=== PATIENT | male | born 1990 | race Caucasian/White ===

== ENCOUNTER 2023-08-04 06:22 | Inpatient (IN) | payer OTHER, SELFPAY ==
[2023-08-04 01:40] VITALS: BP 122/65; BMI 26.7
--- NOTE | 2023-08-04 02:01 | ED.GENMED ---
History of Present Illness
General
Chief Complaint: Cancer Problem
Source: family
Time Seen by Provider: 08/04/23 01:42
Travel History
Have you had any contact with someone who has COVID-19?: No
Do you have any symptoms of coronavirus? Fever > 100 degrees, chills, cough, shortness of breath, sore throat, loss of taste or smell, muscle aches, or headache?: No
History of Present Illness
History of Present Illness:
33-year-old male presents to the emergency room for aphasia, confusion. Patient is an unfortunate young man who has a history of metastatic melanoma. He is going through extensive treatments including chemo, immunotherapy, surgical resections,
radiation. He has been through clinical trials. Despite this he continues to have advanced disease with recent onset of right lower extremity paralysis followed by right upper extremity paralysis. However despite this paralysis he was cognizant
and conversant. This evening however he became aphasic and more confused. Patient has chronic pain but has been refusing his pain medicine tonight which parents recognize is very unusual. He is unable to identify his father and mother correctly.
Up until recently the patient was able to describe his full medical history, list of meds etc. Patient is unable to provide any history due to confusion/aphasia
Past History
Past History
ED Past Medical History: Cancer (Stage 4 melanoma) and Other (Kidney stones)
ED Past Surgical History: Orthopedic (right shoulder, low back) and Other (stent, renal calc retrieval, inguinal hernia repair,. Right eyebrow (original melanoma site), wisdom teeth)
Social History
Tobacco: Non-smoker
Alcohol: Occasional
Drug: Marijuana and Other (Occasional recreational use)
Personal: Single
Living: with family
Employment: Employed
Family History
Family History: Negative Early CAD or Sudden
Phy Exam
Physical Exam
Physical Exam:
General: Awake, confused, appears chronically ill
Vitals: unremarkable
Head: Atraumatic
Eyes: Pupils equal, EOMI
Throat: Airway intact, no exudates
Neck: Trachea midline
Lungs: Clear and equal b/l
Heart: Regular rate, no murmurs
Abd: Soft, Nontender, No pulsatile mass
Neuro: Right hemiplegia, expressive aphasia. Patient is able to follow commands
Skin: Warm, dry, no rash
Extremities: pulses equal b/l, no edema
Course
Orders/Labs/Results
Orders:
Orders
08/04/23 02:00
CT Head W/o Iv Contrast Urgent
Comment:
Reason For Exam: aphasia, hx of metastaic melenoma
HYDROmorphone [Dilaudid] 1 mg IV NOW STA
08/04/23 02:01
Basic Metabolic Panel Urgent
Complete Blood Count/With Diff Urgent
08/04/23 02:34
Ondansetron Injectable [Zofran] 4 mg .ROUTE .STK-MED ONE
08/04/23 02:48
Ondansetron Injectable [Zofran] 4 mg IV NOW STA
08/04/23 04:37
HYDROmorphone [Dilaudid] 1 mg .ROUTE .STK-MED ONE
08/04/23 04:38
HYDROmorphone [Dilaudid] 1 mg IV NOW STA
08/04/23 04:48
Dexamethasone Sod Phosphate [Decadron] 8 mg IV NOW STA
Abnormal Lab Results
08/04/23
02:01
RBC 2.54 L 10^6/uL
(4.70-6.10)
Hgb 6.2 L* g/dL
(13.0-18.0)
Hct 19.8 L* %
(39.0-52.0)
MCV 78.0 L fL
(80.0-94.0)
MCH 24.4 L pg
(27.0-31.0)
MCHC 31.3 L g/dL
(33.0-37.0)
RDW 16.4 H %
(11.5-14.5)
Abs Immat Gran (auto) 0.1 H 10^3/uL
(0-0.05)
Absolute Lymphs (auto) 0.5 L 10^3/uL
(1.2-3.4)
Immature Gran % 1.5 H %
(0-0.5)
Neutrophils % 83.4 H %
(42.2-75.2)
Lymphocytes % 8.9 L %
(20.5-51.1)
Creatinine 0.6 L mg/dL
(0.7-1.3)
Glucose 104 H mg/dl
(70-99)
08/04/23 02:01
08/04/23 02:01
Vital Signs
Initial and Last Documented VS:
Initial Vital Signs
Temp Pulse Resp BP Pulse Ox
97.7 F 91 18 122/65 97
08/04/23 01:40 08/04/23 01:40 08/04/23 01:40 08/04/23 01:40 08/04/23 01:40
Last Documented Vital Signs
Temp Pulse Resp BP Pulse Ox
97.7 F 91 18 122/65 97
08/04/23 01:40 08/04/23 01:40 08/04/23 01:40 08/04/23 01:40 08/04/23 01:40
MDM/Problems Addressed
Differential Diagnosis Includes:
Bleed into cerebral metastases, increased edema from cerebral metastases, new metastatic disease, CVA
MDM/Problems Addressed:
Renal function
Man with metastatic melanoma. He is known brain lesions which have been causing right-sided weakness. Patient has had most of his treatment at our [facility] where he has essentially exhausted all therapies. He was evaluated at the
[facility] to see if there would be any surgical options for his brain mets but the surgeons there felt he was not a candidate for intervention. There was some consideration of radiation. In addition to the significant metastatic
lesions the patient also has intra-abdominal and bony mets. CT performed here does not show any intra cranial hemorrhage but does show marked edema bilaterally but left greater than right. I discussed these findings with the patient and his
family. Given the widely metastatic disease and the fact he is already gone through many courses of treatment the patient has reached and end stage of his disease. I recommended that we change the goals of treatment to comfort care/hospice.
Family tells me this topic has been broached by the physicians at [place] but they had not quite decided to go that route. They now agree that this is the best option. Will hospitalize the patient for comfort measures pending arrangement of hospice.
Acute Exacerbation and/or Progression of Chronic Illness: Cancer (Metastatic melanoma)
*Radiology
Radiology exam reviewed: other (Vision report reviewed)
*Pulse Oximetry
Patient hypoxic: no
*Critical Care Note
Total Time (30-74mins, 75-104mins- exclusive of procedures): Not Applicable
Patient Management
Social determinants of health affecting care: Living situation and Other (Patient has strong family support but they are overwhelmed by the current requirements of the patient)
ED Attending Note
-
Portions of this chart may have been created with voice recognition software.� Occasional wrong word or��sound alike� substitutions may have occurred due to the inherent limitations of voice recognition software.
Discharge Plan
Departure
Patient Disposition: Admit
Date of Disposition: 08/04/23
Time of Disposition: 04:48
Admit to: Med/Surg
Presentation/result/management discussed w/ accepting MD/DO: Hospitalist
Condition: Fair
Discharge Problem:
Brain mass, Melanoma, Aphasia
Prescriptions:
No Action
levetiracetam [Keppra] 1,000 mg Tablet
1,000 mg PO BID
Braftovi 75 mg Capsule
450 mg PO DAILY
Mektovi 15 mg Tablet
45 mg PO BID
promethazine 25 mg Tablet
25 mg PO Q6H PRN (Reason: nausea)
morphine
1 dose PO PRN PRN (Reason: cancer pain)
Patient Comments:
01/25/2023: Pt states he takes it, but cant find on Dr First or PDMP
cefdinir 300 mg capsule
300 mg PO BID 6 Days Qty: 12 0RF
hydromorphone [Dilaudid] 4 mg Tablet
4 mg PO Q4H PRN (Reason: cancer pain) Qty: 30 0RF
Patient Comments:
01/25/2023: last filled 01/22/23, 16 tabs for 4 days from [facility]
ferrous sulfate 325 mg (65 mg iron) tablet
325 mg PO DAILY Qty: 30 0RF
sennosides [senna] 8.6 mg Tablet
17.2 mg PO HS
polyethylene glycol 3350 17 gram Powder In Packet
17 g PO DAILY
acetaminophen 500 mg Tablet
1,000 mg PO Q8H PRN (Reason: mild pain/fever )
ondansetron 8 mg Tablet,Disintegrating
8 mg PO Q8H PRN (Reason: nausea )
pantoprazole 40 mg Tablet,Delayed Release (Dr/Ec)
40 mg PO DAILY
dexamethasone 4 mg Tablet
4 mg PO DAILY
pyridoxine (vitamin B6) 100 mg Tablet
100 mg PO DAILY
fentanyl 25 mcg/hr Patch 72 Hour
1 patch TRANSDERMAL Q72H
oxycodone 5 mg Tablet
10 mg PO Q4H PRN (Reason: moderate to severe pain)
pregabalin 75 mg Capsule
75 mg PO DAILY
binimetinib 15 mg Tablet
45 mg PO Q12H
Oral Chemo Non-Formulary
450 mg PO DAILY
Referrals:
UNKNOWN - PT NOT,INTERVIEWE [Family Provider] -
Interventions
Interventions:
*Risk Screen - Suicide Last Done: 08/04/23 01:40
*General Assessment Last Done: 08/04/23 01:40
*Neglect/Abuse Screening Last Done: 08/04/23 01:40
ED- Fall Risk Assessment Last Done: 08/04/23 02:56
*ED COVID-19 Vaccine History Last Done: 08/04/23 01:40
Discharge Date and Time
Print Language: JAMAICAN
[2023-08-04] MEDS: DILAUDID 1 MG IV ×3 (02:03→05:19)
[2023-08-04 02:10] LABS: % Basophils 0.3 % (0-2); % Eosinophils 0.3 % (0-6); % Immature Granulocytes 1.5 % (0-0.5); % Lymphocytes 8.9 % (20.5-51.1); % Monocytes 5.6 % (1.7-9.3); % Neutrophils 83.4 % (42.2-75.2); Absolute Immature Granulocytes 0.1 10^3/uL (0-0.05); Absolute Lymphocytes 0.5 10^3/uL (1.2-3.4); Absolute Monocytes 0.3 10^3/uL (0.1-0.6); Mean Corp Hgb Conc. 31.3 g/dL (33.0-37.0); Mean Corpuscular Hgb 24.4 pg (27.0-31.0); Mean Platelet Volume 10.1 fL (7.4-10.4); Nucleated Red Blood Cells % 0 % (-); Platelet Count 279 10^3/uL (130-400); Red Blood Cell Count 2.54 10^6/uL (4.70-6.10); Red Cell Dist. Width 16.4 % (11.5-14.5); White Blood Cell Count 5.9 10^3/uL (4.8-10.8)
[2023-08-04 02:19] LABS: Hematocrit 19.8 % (39.0-52.0); Hemoglobin 6.2 g/dL (13.0-18.0)
[2023-08-04 02:30] LABS: Blood Urea Nitrogen 12 mg/dl (9-20); Carbon Dioxide 24 mmol/L (22-30); Chloride 104 mmol/L (98-107); Estimated Creatinine Clearance > 125 ml/min; Glucose 104 mg/dl (70-99); Potassium 4.2 mmol/L (3.5-5.1); Sodium 136 mmol/L (135-145); eGFR > 60.00
[2023-08-04] MEDS: ZOFRAN 4 MG IV (02:48)
[2023-08-04] MEDS: DECADRON 8 MG IV (05:18)
--- NOTE | 2023-08-04 05:39 | HPS.HSE ---
Family Physician
-
Family Physician: INTERVIEWE UNKNOWN - PT NOT
Chief Complaint
-
Confusion, Agitation
History of Present Illness
Patient is a 33y M with PMH significant for stage IV myeloma who presents to ED for evaluation of confusion and agitation. History obtained from the patient and his family at the bedside.
Patient was diagnosed with melanoma 5 years ago. He has received multiple surgeries including two craniotomies, small bowel resection, etc as well as multiple treatments with immunotherapy, chemotherapy, radiation, etc. He was most recently
enrolled in a clinical trial at [facility]. This was discontinued approximately one month ago when the trial drug was found to be ineffective.
He has pain chronically due to bony metastases and is maintained on chronic opioid medications including Fentanyl patch and oxycodone.
Patient developed weakness in the RLE and was seen at [facility] last month. Imaging at that time has been scanned into his chart and shows evidence of multiple STEAM CONDITIONING OPERATOR metastases with areas of cerebral edema.
Since that time, patient has also developed weakness in the R arm / complete R hemiparesis.
He has become more emotionally labile / agitated and angry according to family.
This evening around midnight, patient was noted to be extremely confused and disoriented. He was unable to answer simple questions or identify his father.
EMS was called and he was brought to ED for further evaluation.
In the ED, patient is intermittently tearful / distressed. He is anxious / agitated at times.
The option of Hospice care has been discussed with the patient and his family over the past month or so and they are now interested in this approach to ensure the patient's maximum comfort.
Medical History
Past Medical History
Past Medical History: Reports Other
Additional Past Medical History:
Stage IV Melanoma with Metastases to the Brain and Bones
Past Surgical History: Reports Other
Additional Past Surgical History:
Melanoma Excisions (multiple)
Craniotomy / STEAM CONDITIONING OPERATOR Metastasis Excision (x 2)
Partial Small Bowel / Tumor Resection
Social History
Tobacco: Non-smoker
Alcohol: Occasional
Drug: None
Living: With Family
Family History
Family History: Not pertinent
Allergies / Home Medications
Allergies reflects when Allergies were last updated in [facility].
Home Medications with original date entered in [facility]
Allergy/Medication List:
Allergies
Allergy/AdvReac Type Severity Reaction Status Date / Time
No Known Allergies Allergy Verified 12/16/22 23:43
Home Medications
binimetinib 15 mg tablet (Mektovi) 45 mg PO BID melanoma 12/16/22
encorafenib 75 mg capsule (Braftovi) 450 mg PO DAILY melanoma 12/16/22
levetiracetam 1,000 mg tablet (Keppra) 1,000 mg PO BID Seizures 12/16/22
promethazine 25 mg tablet 25 mg PO Q6H PRN nausea 12/16/22
morphine 1 dose PO PRN PRN cancer pain 01/25/23
cefdinir 300 mg capsule 300 mg PO BID 6 days #12 caps 01/26/23
ferrous sulfate 325 mg (65 mg iron) tablet 325 mg PO DAILY #30 tabs 01/26/23
hydromorphone 4 mg tablet (Dilaudid) 4 mg PO Q4H PRN cancer pain #30 tabs 01/26/23
Oral Chemo Non-Formulary 450 mg PO DAILY 08/04/23
acetaminophen 500 mg tablet 1,000 mg PO Q8H PRN mild pain/fever 08/04/23
binimetinib 15 mg tablet 45 mg PO Q12H 08/04/23
dexamethasone 4 mg tablet 4 mg PO DAILY 08/04/23
fentanyl 25 mcg/hr transdermal patch 1 patch transdermal Q72H 08/04/23
ondansetron 8 mg disintegrating tablet 8 mg PO Q8H PRN nausea 08/04/23
oxycodone 5 mg tablet 10 mg PO Q4H PRN moderate to severe pain 08/04/23
pantoprazole 40 mg tablet,delayed release 40 mg PO DAILY 08/04/23
polyethylene glycol 3350 17 gram oral powder packet 17 g PO DAILY 08/04/23
pregabalin 75 mg capsule 75 mg PO DAILY 08/04/23
pyridoxine (vitamin B6) 100 mg tablet 100 mg PO DAILY 08/04/23
sennosides 8.6 mg tablet (senna) 17.2 mg PO HS 08/04/23
Review of Systems
-
History Source: Patient and Family
Constitutional: Reports Fatigue
Respiratory: Denies Cough or Trouble Breathing
Cardiac: Reports Chest Pain
Abdomen/GI: Reports Abdominal Pain, Nausea, Vomiting and Anorexia
Musculoskeletal: Reports Joint Pain and Muscle Pain
Psych: Reports Depression, Anxiety and Other (Confusion / agitation)
Physical Exam
Vital Signs
Vital Signs
Temp Pulse Resp BP Pulse Ox
97.7 F 91 18 122/65 97
08/04/23 01:40 08/04/23 01:40 08/04/23 01:40 08/04/23 01:40 08/04/23 01:40
Physical Exam
General: Other (33y M pale in no distress at rest. Intermittently anxious / agitated during exam.)
Respiratory: Clear; No Wheezes, Rales or Rhonchi
Cardiac: S1/S2 and Regular Rhythm; No Murmur
GI: Soft and Normal Bowel Sounds
Neuro: Other (Dense R hemiparesis.)
Laboratory Results
-
08/04/23 02:01
08/04/23 02:01
Impression/Plan
-
A/P: Patient is a 33y M with PMH significant for stage IV melanoma who presents to ED with confusion and agitation.
Stage IV Melanoma
Chronic Pain secondary to bony metastases
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
Severe Anemia
- Admit for further evaluation and treatment.
- Patient and family have exhausted all treatment options for his melanoma including clinical trials and are interested in hospice care - potentially in an inpatient setting given his hemiparesis / debility.
- IV steroid given in the ED - follow for any evident effect on vasogenic edema / mood symptoms / etc.
- Comfort care medications to control pain, anxiety, agitation, etc.
- Case Management / Hospice evaluation to assist with arrangements.
- No invasive procedures, lab draws, needlesticks, etc.
- Hold all non-essential medications.
- Continue medications for seizure prophylaxis.
- Monitor for any obvious source of blood loss. Hold on transfusion, etc given plan for Hospice care.
DVT Prophylaxis: N/A
Code Status: DNR
[2023-08-04] MEDS: NSS (PRESERVATIVE FREE) 0.5 ML IV (05:40)
[2023-08-04] MEDS: ATIVAN 1 MG IV (05:40)
[2023-08-04 07:20] VITALS: BP 101/57
--- NOTE | 2023-08-04 07:45 | PTCARENOTE ---
Received this pt from the ED, transferred to bed, pt medicated and repositioned with comfort measures, bed alarm and medsitter placed for agitation and fall risk, pt resting comfortably in bed at this time. Family updated and on their way into [facility].
[2023-08-04] MEDS: MORPHINE SULFATE 2 MG IV ×4 (08:24→12:39)
[2023-08-04] MEDS: KEPPRA 1000 MG PO (08:26)
[2023-08-04] MEDS: LYRICA 75 MG PO (08:26)
[2023-08-04] MEDS: TYLENOL 1000 MG PO (08:26)
[2023-08-04] MEDS: DURAGESIC 25 MCG/HR PATCH 1 PATCH TRANSDERM (08:27)
--- NOTE | 2023-08-04 09:06 | W.PN.HOSP.TC ---
Today's Communication/Plan
-
await hospice
cont comfort measures and IV steroids for now
Assessment / Plan
Assessment / Plan
pt is a 33 year old male
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
trials and are interested in hospice care - potentially in an inpatient setting given his hemiparesis/debility--await input from CM/hospice---IV steroid given in the ED--follow for any evident effect--may be worth low dose for now-- - Comfort care
medications to control pain, anxiety, agitation, etc.-- - Continue medications for seizure prophylaxis.
Severe Anemia, likely chronic disease--Monitor for any obvious source of blood loss. Hold on transfusion, etc given plan for Hospice care.
DVT Prophylaxis: N/A
Code Status: DNR
Anticipated Discharge: 24 - 48 hours
Subjective/Interval History
-
Date of Service: August 04, 2023
pt denies pain--caught him trying to get out of bed
Objective Data
-
Labs:
Laboratory Results
08/04/23
02:01
WBC 5.9
Hgb 6.2 L*
Hct 19.8 L*
Plt Count 279
Sodium 136
Potassium 4.2
Chloride 104
Carbon Dioxide 24
BUN 12
Creatinine 0.6 L
Glucose 104 H
Calcium 9.0
Vital Signs:
max temp for 24 hours
08/04/23
01:40
Temp 97.7 F
Vital Signs
Temp Pulse Resp BP Pulse Ox
97.7 F 91 18 122/65 97
08/04/23 01:40 08/04/23 01:40 08/04/23 01:40 08/04/23 01:40 08/04/23 01:40
Review of Systems
-
All other systems: Reviewed and negative
Physical Exam
-
General: Well Developed, Well Nourished and No Apparent Distress
HEENT: Normocephalic and Atraumatic
Respiratory: Clear to Auscultation; Negative Wheezes or Rhonchi
Cardiac: Regular Rhythm and S1/S2; Negative Murmur
GI: Soft, Nontender, Nondistended and Normal Bowel Sounds
Musculoskeletal: No Clubbing, No Cyanosis and No Edema
Neuro: Awake and Other (right hemiparesis)
[2023-08-04] MEDS: ATIVAN 0.5 MG IV (09:23)
[2023-08-04] MEDS: DECADRON 4 MG IV (09:33)
--- NOTE | 2023-08-04 09:57 | CM ---
Joe spoke with pt's Mother Ashley [phone] to hospital.
Ashlye did confirm she will be meeting with beam racker between 10:30 and 11:30.
JOE plans to follow up with Mother in person, per Mother's request.
--- NOTE | 2023-08-04 10:00 | PTCARENOTE ---
Pt came into [facility] with a fentanyl patch placed on right upper chest and managed at home by the pt's mother. Per protocol patch should be wasted in Pyxis however this was not a patch from the hospital so there is no method of wasting. New patch
placement/removal witnessed by second RN, see MAR, old patch placed in correct disposal bin in med room.
--- NOTE | 2023-08-04 10:08 | HOSPNOTE ---
Hospice referral received. Patient will be visited this morning by a hospice nurse for an intro to hospice.
--- NOTE | 2023-08-04 12:30 | PTCARENOTE ---
This RN medicated pt with PRN ativan order per seizure protocols instead of anxiety/agitation as intended, MD DARRYN made aware, pt resting comfortably in bed, no new orders at this time.
--- NOTE | 2023-08-04 12:48 | W.PN.UPDATE ---
Update Note
Progress Note Update
spoke with hospice nurse, Merry, parents and brother all at bedside--pt trying to get out of bed, not re-directable, now with med sitter in place---pt nurse says she is giving hourly IV morphine without any relief, still in pain--still agitated
(perhaps IV steroids not helping)
next steps would be morphine drip for comfort
--- NOTE | 2023-08-04 13:25 | HOSPNOTE ---
Met with patient and patients parents, reviewed hospice care and GIP hospice care. Patient is GIP appropriate for management of pain. Patient has received four doses of IV push Morphine and continues to have pain 7 out of 10. Patient agitated and
attempting to get OOB, required IV Ativan, patient refused PO medication and became agitated when patient's mother tried to hlep patient calm. Reviewed with patient's family that if symptoms are managed patient may be discharged to home hospice,
understanding stated.
--- NOTE | 2023-08-04 13:34 | W.DCSUMMARY ---
Discharge Summary
Discharge Data
Date of Admission: 08/04/23
Date of Discharge: 08/04/23
-
Pending Results: No
Hospital Course
Primary care physician : Not Listed
Principal Discharge diagnosis : Stage IV melanoma with intractable chronic pain and agitation secondary to TALENT ACQUISITION COORDINATOR metastatic disease
Chronic Discharge diagnosis : Stage IV melanoma, anemia of chronic disease
Hospital Course : Patient is a 33-year-old male who has stage IV metastatic melanoma who presented for confusion and agitation. He was diagnosed 5 years prior and received multiple surgeries including 2 craniotomies, small bowel resection,
immunotherapy, chemotherapy, radiation and was recently enrolled in a clinical trial at [facility]. Trial drug was found to be ineffective. Patient has pain chronically due to bony metastases and is on chronic opioid medications
including fentanyl patch and oxycodone. He developed right lower extremity weakness and had multiple TALENT ACQUISITION COORDINATOR metastases with areas of cerebral edema. Since that time and despite being on steroids, patient developed weakness in the right arm and
complete right hemiparesis. He is emotionally labile and agitated and family is no longer able to care for him at home. Hospice has been discussed and they are interested in this approach as there are no further treatment options at this time.
Patient was admitted and placed on comfort measures with DNR status. 2 mg of IV morphine hourly is not holding or even controlling the patient's pain. This is in addition to his fentanyl patch. He is not taking anything by mouth. All medications
have been changed to IV. Morphine has been increased to 4 mg IV hourly and because of this patient does meet criteria for inpatient hospice. Patient and family agreeable.
Important imaging findings :
CT HEAD IMPRESSION:
Evaluation is relatively limited with no comparison examinations available.
Extensive white matter edema is present, which is likely related to metastatic lesions and/or treatment.
Discharge Plan
-
Patient Disposition: Hospice - Inpatient [facility]
Discharge Orders:
Discharge Patient (As Directed); Ordered 08/04/23
Ordered By: Renetta Dominguez
Discharge Date and Time
Print Language: AZERI
[2023-08-04] MEDS: MORPHINE SULFATE 4 MG IV (13:53)
--- NOTE | 2023-08-04 14:28 | HOSPNOTE ---
Hospice consents signed by patient's mother Ashley, patient is aware of hospice and is in agreement.
== END 2023-08-04 14:29 | disposition hospice, inpatient (51) | DRG 947 ==
LOC: 2 NORTH 06:22
PROVIDERS: ADMITTING PHYSICIAN Hospitalist; ATTENDING PHYSICIAN Internal Medicine; EMERGENCY PHYSICIAN Emergency Medicine
DX: G89.3 Neoplasm related pain (acute) (chronic) (principal); G93.6 Cerebral edema; R47.01 Aphasia; C79.31 Secondary malignant neoplasm of brain; C79.51 Secondary malignant neoplasm of bone; G81.91 Hemiplegia, unspecified affecting right dominant side; C43.9 Malignant melanoma of skin, unspecified; R45.86 Emotional lability; R45.1 Restlessness and agitation; D63.8 Anemia in other chronic diseases classified elsewhere; Z66 Do not resuscitate; Z51.5 Encounter for palliative care; Z87.442 Personal history of urinary calculi; Z92.21 Personal history of antineoplastic chemotherapy; Z92.3 Personal history of irradiation
CPT/HCPCS: 70450; 80048; 85025; 96374; 96375; 96376; 99285

== ENCOUNTER 2023-08-04 14:40 | Inpatient (IN) | payer OTHER, SELFPAY ==
--- NOTE | 2023-08-04 14:54 | ADM.HSP ---
Admission - Hospice
History of Present Illness
Patient is a 33-year-old male who has stage IV metastatic melanoma who presented for confusion and agitation. He was diagnosed 5 years prior and received multiple surgeries including 2 craniotomies, small bowel resection, immunotherapy,
chemotherapy, radiation and was recently enrolled in a clinical trial at [facility]. Trial drug was found to be ineffective. Patient has pain chronically due to bony metastases and is on chronic opioid medications including fentanyl
patch and oxycodone. 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 Since that time and despite being on steroids, patient developed weakness in the right arm and complete right
hemiparesis. He is emotionally labile and agitated and family is no longer able to care for him at home. Hospice has been discussed and they are interested in this approach as there are no further treatment options at this time.
Reason for Hospice Admission
intractable pain/agitation
Review of Systems
Unable to obtain full review of systems at this time due to: Acuity
Physical Exam
General: Well Developed, Well Nourished and Pain
Respiratory: Clear to Auscultation, Wheezes and Rhonchi
Cardiology: Regular Rhythm, S1/S2 and Murmur
GI: Soft, Nontender, Nondistended and Normal Bowel Sounds
Musculoskeletal: No Clubbing, No Cyanosis and No Edema
Neuro: Other (hemiparesis right side)
Psych: Agitated
Assessment/Medication Plan
Generic Name Dose Route Start Last Admin
Trade Name Freq PRN Reason Stop Dose Admin
Acetaminophen 650 mg 08/04/23 14:49
Acetaminophen 325 Mg Tablet PO 09/01/23 14:48
Q4HPRN PRN
mild pain, SINGH, or temp >100.4F
Acetaminophen 650 mg 08/04/23 14:49
Acetaminophen 650 Mg Rectal Suppository RECTAL 09/01/23 14:48
Q4HPRN PRN
mild pain, SINGH, or temp >100.4F
Bisacodyl 10 mg 08/04/23 14:49
Bisacodyl 10 Mg Rectal Suppository RECTAL 09/01/23 14:48
DAILYPRN PRN
if no BM for 3 days
Glycopyrrolate 0.2 mg 08/04/23 14:49
Glycopyrrolate 0.2 Mg/Ml Vial IV 09/01/23 14:48
Q4HPRN PRN
excessive secretions
Haloperidol Lactate 0.5 mg 08/04/23 14:54
Haloperidol 5 Mg/Ml 1 Ml Vial IV 09/01/23 14:48
Q4HPRN PRN
agitation/terminal delirium
Morphine Sulfate/Sodium Chloride 100 mg in 100 mls @ 0 mls/hr 08/04/23 15:00
Morphine IV
PER PROTOCOL CAROLYN
Protocol
Per Protocol
Lorazepam 0.5 mg 08/04/23 14:49
Lorazepam 2 Mg/Ml Vial IV 09/01/23 14:48
Q2HPRN PRN
anxiety
Protocol
Lorazepam 2 mg 08/04/23 14:49
Lorazepam 2 Mg/Ml Vial IV 09/01/23 14:48
Q1HPRN PRN
seizure
Protocol
Morphine Sulfate 4 mg 08/04/23 14:49
Morphine 2 Mg/Ml Syringe IV 08/18/23 14:48
Q1HPRN PRN
moderate-severe pain / dyspnea
Morphine Sulfate 0 mg 08/04/23 14:49
Morphine 2 Mg/Ml Syringe IV 08/18/23 14:48
Q32PWMT PRN
moderate-severe pain / dyspnea
Protocol
Ondansetron HCl 4 mg 08/04/23 14:49
Ondansetron 4 Mg/2 Ml Vial IV 09/01/23 14:48
Q6HPRN PRN
nausea/vomiting
Pharmacy Profile Note 0 unit 08/04/23 15:[address] 1 Unit IV 09/01/23 14:59
DIRECTED CAROLYN
pt is a 33 year old male
stage 4 metastatic melanoma--admit to inpt hospice for pain and agitation control--morphine increased to 4mg IV Y0A--qm that does not hold him, progress to drip
code status--DNR
--- NOTE | 2023-08-04 15:00 | PTCARENOTE ---
Pt's chart flipped to inpatient hospice, chart updated, pt medicated per comfort measures and resting comfortably with family members at bedside.
[2023-08-04] MEDS: ATIVAN 0.5 MG IV ×2 (15:28→20:17)
[2023-08-04] MEDS: MORPHINE SULFATE 4 MG IV ×4 (16:58→21:08)
[2023-08-04] MEDS: DURAGESIC 100 MCG/HR PATCH 2 PATCH TRANSDERM (17:36)
[2023-08-04] MEDS: MORPHINE 4 IV (18:02)
--- NOTE | 2023-08-04 18:24 | PTCARENOTE ---
Chart flipped for inpatient hospice admission, original fentanyl patch from old chart at 25mcg/hr removed. New chart did not have this patch listed, new order written for 2 patches at 100mcg/hr in current chart. Patches placed on patient, second RN
witnessed new placement (see MAR), old patch thrown in proper disposal in med room, no new orders at this time.
[2023-08-04] MEDS: KEPPRA 1000 MG IV (20:17)
[2023-08-04] MEDS: NSS (PRESERVATIVE FREE) 0.25 ML IV (20:17)
[2023-08-04 23:12] VITALS: BP 106/62
--- NOTE | 2023-08-04 23:49 | PTCARENOTE ---
Patients family requesting change from hospice to aggressive treatment
--- NOTE | 2023-08-04 23:50 | W.PN.UPDATE ---
Update Note
Progress Note Update
2153 TT received from floor nurse that patients family at bedside requesting to change code status back to being a Full Code.
Patient AAOx3, informed him that family at bedside (mother, father and sister/POA) want to discuss POC with this provider in family waiting area, patient agreed this was ok to do. Discussion with family (Mother, Father, Sister/POA present and 2
other siblings a brother and sister present via facetime call) started off with many questions regarding patients stay from arrival in ED up to present time. A lot of concerns this provider was unable to speak on as was not present prior to this
evenings night-shift for work. Some concerns mentioned were: why was DNR bracelet placed on patient in ED prior to anyone asking about code status? why was patient placed with hospice orders prior to consents being signed (claims attending made a
comment 'patient is hospice status' prior to consents with hospice)? Sister/POA and staff attorney wants to know why patients mother was allowed to sign hospice consents when she is not legal POA? Why were steroids stopped as it is vital part of treatment
for patient?
This provider offered best explanations for questions off of charted documentation. We reviewed previous course of events and understand that this provider can not speak in detail on events earlier and am answering based on documented content.
Follow questions we reviewed current POC, families issues and concerns and goals of care going forward. We spoke at length regarding treatment options both aggressively and with comfort/hospice based. Family appears to be angry and in denial of
current patient status. Sister/POA and staff attorney stated, 'I do not feel I am doing the best for my brother unless he is seen by Oncology and is requesting to revoke Hospice for a consult order to be placed.' She also requested that patient be a,
'Full Code,' verse 'DNR,' until a consult is completed and definitive decision is made for his care. Long discussion was had including that patient will remain his own decision maker until he is unable to do so then POA can decide on his own. A lot
of education regarding aggressive measures and possible difficulty maintaining his current comfort verse hospice and comfort approach was done. Also was able to educate on hospice rules regarding a consult from Oncology. Was able to inform family a
consult is not denied all the time when a patient is already enrolled in hospice. Needing to d/c hospice would be required if certain testing or treatments were going to be pursued. Also, educated them on signing consents for hospice is not a
binding contract and any decision can be changed at anytime if requested, and that requests would come from patient, if not able to make own decisions then would be decided by a legal POA if there is one if not next of kin would be decision maker.
Conversation with director cpg, Concepción Barrera, with update and discussed possible plan for overnight and tomorrow morning. Reviewed options with patients family and agreeable. Patient will remain on [facility] overnight with a goal of comfort,
will have attending request Oncology Consult for morning, knowing that if patient were to on this shift POA/sister would request that patients hospice be revoked and all interventions be done to preserve life. Hospice and Care teams have been
updated. Strategy Director updated, floor nurse and nursing cable supervisor updated.
--- NOTE | 2023-08-04 23:52 | PTCARENOTE ---
Patients family confronted this nurse about changing patient to a full code. Requested OPERATING ROOM AIDE to come to floor to speak with family. Please see CRNPs detailed note regarding this.
[2023-08-05] MEDS: DECADRON 4 MG IV ×5 (00:10→23:02)
[2023-08-05 07:25] VITALS: BP 104/62
[2023-08-05] MEDS: KEPPRA 1000 MG IV ×2 (08:03→20:38)
[2023-08-05] MEDS: MORPHINE SULFATE 4 MG IV ×5 (08:03→19:33)
--- NOTE | 2023-08-05 09:03 | CHAP ---
Father Arsenio Romero of [facility] in [place] was called to anoint Mr. Westbrook and give him Last Rites. This was done on August 03, time uncertain.
--- NOTE | 2023-08-05 11:10 | HOSPNOTE ---
Family meeting with Vargas and parents and siblings to discuss goals of hospice and possible treatment modalities he still wished to explore before hospice. assistant quality manager and Dr. Dominguez present of meeting. Questions answered and hospice explained.
Patient had an appointment at [facility] today for a possible immunotherapy treatment. Family and patient are struggling to giving that option up and staying on hospice. Patient crying during discuss. Left family and patient to discuss on their own
and follow up with us later. All understand that Morphine gtt at 4mg/hr will need to be stopped and pain management will be a challenge. Also discussed full code status and its disadvantages and probable cause for severe pain. Family wants to
speak to oncologist and Bruce Galvan about options.
Aware they can revoke hospice and sign back on at a later time.
--- NOTE | 2023-08-05 11:15 | W.PN.HOSP.TC ---
Today's Communication/Plan
-
ongoing discussions
Assessment / Plan
Assessment / Plan
pt is a 33 year old male
stage 4 metastatic melanoma--cuurently on inpt hospice for pain and agitation control--morphine drip ongoing--pt more awake
code status--DNR
Head family meeting with patient, mother and father, brother and sister, hospice nurse, case management to discuss how patient ended up on hospice, DNR status, goals of care and where to go from here.
In my opinion, after the discussion, family seems to be pushing him to not give up as he has not yet met with an oncologist at [facility] who was recommended by his primary oncologist at [facility].
They still wish for oncology here to see him and weigh in on options even though I told them that the oncologist recommendation may be for them to talk with his oncologist that know him from [facility].
Will place oncology consult. Patient to discuss with family where he wants to go from here. Hospice nurse will check back with them later today.
Anticipated Discharge: > 48 hours
Subjective/Interval History
-
Date of Service: August 05, 2023
had hour long family meeting discussing how he got on hospice
Objective Data
-
Vital Signs:
max temp for 24 hours
08/04/23
07:20
Temp 99.1 F
Vital Signs
Temp Pulse Resp BP Pulse Ox
98.2 F 84 16 104/62 97
08/05/23 07:25 08/05/23 07:25 08/05/23 07:25 08/05/23 07:25 08/05/23 07:25
I&O
08/04/23 08/05/23 08/06/23
06:59 06:59 06:59
Intake Total 730 / 730
Output Total 500 / 500
Balance 230 / 230
Review of Systems
-
All other systems: Reviewed and negative
Physical Exam
-
General: Well Developed, Well Nourished and No Apparent Distress
HEENT: Normocephalic and Atraumatic
Respiratory: Clear to Auscultation; Negative Wheezes or Rhonchi
Cardiac: Regular Rhythm and S1/S2; Negative Murmur
GI: Soft, Nontender, Nondistended and Normal Bowel Sounds
Musculoskeletal: No Clubbing, No Cyanosis and No Edema
Neuro: Awake
--- NOTE | 2023-08-05 11:20 | CM ---
Family meeting, with Hospice, family meeting and Physician. Awaiting family/patient discussions/decisions. CM will continue to follow for discharge planning needs.
Plan; currently inpatient hospice
[2023-08-05] MEDS: COLACE 100 MG PO ×2 (12:18→20:38)
[2023-08-05] MEDS: MORPHINE 100 IV (13:02)
[2023-08-05] MEDS: ATIVAN 0.5 MG IV ×2 (15:02→19:33)
[2023-08-05] MEDS: NSS (PRESERVATIVE FREE) 0.25 ML IV ×2 (15:02→19:33)
--- NOTE | 2023-08-05 15:23 | HOSPNOTE ---
Returned to support patient and family with any decision making. Brother, sister mother and patient present. Hospice nurse offered to patient he needs to be able to tell family when he is done fighting and wants hospice, acknowledging that its
difficult to make that transition. Patient states he is not sure he is done fighting, he wants to know what [facility] has to offer.
Brother discussed Morphine infusion at home. I stated that is not offered by our hospice. Sister stated other hospices do that. I acknowledged there may do other hospices that can do that but not without a permanent access such as a port.
Brother than talked about other levels of care that would provide the morphine infusion at home. I asked if he was talking palliative care and I did not know if there is a palliative care that would provide that service.
They are awaiting a call from [facility] doctor. Patient stated he was very anxious and requested anti anxiety medication. Staff nurse notified.
Above conversation shared with [facility] staff nurse, home health care case manager and Dr. Dominguez.
--- NOTE | 2023-08-05 20:48 | CON.ONC ---
Impression
Impression
End-stage metastatic melanoma
PS 4
Plan
Plan
Discussed situation with Dr. Jerry, then had 40 minute meeting with pt and family, then phone conversation with Dr. Kina Morales at [facility], then with pt/family again.
In the meantime they spoke with pt's physician at [facility].
Consensus is in favor of hospice due to poor PS and no treatment options.
Family and pt now seem amenable to hospice.
We will sign off, please call if further questions.
Patient History
History of Present Illness
Patient is a 33-year-old male who has stage IV metastatic melanoma who presented for confusion and agitation. He was diagnosed 5 years prior and received multiple surgeries including 2 craniotomies, small bowel resection, immunotherapy,
chemotherapy, radiation and was recently enrolled in a clinical trial at [facility]. He has continued binimetinib and encorafenib, trial intervention was addition of tumor infiltrating lymphocyte infusion, now D/C'd for lack of
clinical benefit. Patient has pain chronically due to bony metastases and is on chronic opioid medications including fentanyl patch and oxycodone. 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
edema, not a candidate for further radiation or surgery. Since that time and despite being on steroids, patient developed weakness in the right arm and complete right hemiparesis. He is emotionally labile and agitated and family is no longer able
to care for him at home. Hospice was discussed and plan was for inpt hospice but pt/family then had second thoughts and wanted us to speak with Oncology, understanding that treatment, if any, would likely be at [facility].
Past-Medical/Surgical History
Past Medical History
Stage IV Melanoma with Metastases to the Brain and Bones
Past Surgical History
Melanoma Excisions (multiple)
Craniotomy / CONFERENCE SERVICES MANAGER Metastasis Excision (x 2)
Partial Small Bowel / Tumor Resection
Social History
Tobacco: Non-smoker
Alcohol: Occasional
Drug: None
Living: With Family
Family History
Family History: Not pertinent
Patient Medication
�Medication �Instructions �Recorded �Confirmed �Last Taken �Type
binimetinib 15 mg tablet (Mektovi) 45 mg PO BID melanoma 12/16/22 01/25/23 01/25/23 History
encorafenib 75 mg capsule 450 mg PO DAILY melanoma 12/16/22 01/25/23 01/25/23 History
(Braftovi)
levetiracetam 1,000 mg tablet 1,000 mg PO BID Seizures 12/16/22 08/04/23 01/25/23 History
(Keppra)
promethazine 25 mg tablet 25 mg PO Q6H PRN nausea 12/16/22 01/25/23 Unknown History
morphine 1 dose PO PRN PRN cancer pain 01/25/23 01/25/23 01/25/23 12:00 History
hydromorphone 4 mg tablet 4 mg PO Q4H PRN cancer pain #30 01/26/23 01/25/23 01/25/23 07:20 Rx
(Dilaudid) tabs
Oral Chemo Non-Formulary 450 mg PO DAILY Cancer 08/04/23 08/04/23 Unknown History
acetaminophen 500 mg tablet 1,000 mg PO Q8H PRN mild pain/fever 08/04/23 08/04/23 Unknown History
binimetinib 15 mg tablet 45 mg PO Q12H Cancer 08/04/23 08/04/23 Unknown History
dexamethasone 4 mg tablet 4 mg PO DAILY Cancer 08/04/23 08/04/23 Unknown History
fentanyl 100 mcg/hr transdermal 2 patch topical Q72H Pain 08/04/23 08/04/23 Unknown History
patch
ondansetron 8 mg disintegrating 8 mg PO Q8H PRN nausea 08/04/23 08/04/23 Unknown History
tablet
oxycodone 5 mg tablet 10 mg PO Q4H PRN moderate to 08/04/23 08/04/23 Unknown History
severe pain
pantoprazole 40 mg tablet,delayed 40 mg PO DAILY Gastrointestinal 08/04/23 08/04/23 Unknown History
release Issue
polyethylene glycol 3350 17 gram 17 g PO DAILY Constipation 08/04/23 08/04/23 Unknown History
oral powder packet
pregabalin 75 mg capsule 75 mg PO DAILY 08/04/23 08/04/23 Unknown History
pyridoxine (vitamin B6) 100 mg 100 mg PO DAILY Supplement 08/04/23 08/04/23 Unknown History
tablet
sennosides 8.6 mg tablet (senna) 17.2 mg PO HS Supplement 08/04/23 08/04/23 Unknown History
cefdinir 300 mg capsule 300 mg PO BID Infection 08/05/23 Unknown History
ferrous sulfate 325 mg (65 mg 325 mg PO DAILY Supplement 08/05/23 Unknown History
iron) tablet
Active Medications
Generic Name Dose Route Start Last Admin
Trade Name Freq PRN Reason Stop Dose Admin
Acetaminophen 650 mg 08/04/23 14:49
Acetaminophen 325 Mg Tablet PO 09/01/23 14:48
Q4HPRN PRN
mild pain, SINGH, or temp >100.4F
Acetaminophen 650 mg 08/04/23 14:49
Acetaminophen 650 Mg Rectal Suppository RECTAL 09/01/23 14:48
Q4HPRN PRN
mild pain, SINGH, or temp >100.4F
Bisacodyl 10 mg 08/04/23 14:49
Bisacodyl 10 Mg Rectal Suppository RECTAL 09/01/23 14:48
DAILYPRN PRN
if no BM for 3 days
Dexamethasone Sodium Phosphate 4 mg 08/05/23 00:00 08/05/23 17:27
Dexamethasone 4 Mg/Ml 1 Ml Vial IV 09/02/23 00:00 4 mg
Q6H CAROLYN Administration
Docusate Sodium 100 mg 08/05/23 12:15 08/05/23 20:38
Docusate Sodium 100 Mg Capsule PO 09/02/23 12:14 100 mg
BID CAROLYN Administration
Fentanyl 2 patch 08/04/23 17:00 08/04/23 17:36
Fentanyl 100 Mcg/Hr Patch TRANSDERM 08/18/23 16:59 2 patch
Q72H CAROLYN Administration
Glycopyrrolate 0.2 mg 08/04/23 14:49
Glycopyrrolate 0.2 Mg/Ml Vial IV 09/01/23 14:48
Q4HPRN PRN
excessive secretions
Haloperidol Lactate 0.5 mg 08/04/23 14:54
Haloperidol 5 Mg/Ml 1 Ml Vial IV 09/01/23 14:48
Q4HPRN PRN
agitation/terminal delirium
Morphine Sulfate/Sodium Chloride 100 mg in 100 mls @ 0 mls/hr 08/04/23 15:00 08/05/23 13:02
Morphine IV 100 mls
PER PROTOCOL CAROLYN Administration
Protocol
Per Protocol
Levetiracetam 1,000 mg 08/04/23 20:00 08/05/23 20:38
Levetiracetam (100 Mg/Ml) 500 Mg/5 Ml Vial IV 09/01/23 19:59 1,000 mg
Q12 CAROLYN Administration
Lorazepam 0.5 mg 08/04/23 14:49 08/05/23 19:33
Lorazepam 2 Mg/Ml Vial IV 09/01/23 14:48 0.5 mg
Q2HPRN PRN Administration
anxiety
Protocol
Lorazepam 2 mg 08/04/23 14:49
Lorazepam 2 Mg/Ml Vial IV 09/01/23 14:48
Q1HPRN PRN
seizure
Protocol
Morphine Sulfate 0 mg 08/04/23 17:50 08/05/23 19:33
Morphine 4 Mg/Ml Injection IV 08/18/23 17:49 4 mg
[id number] PRN Administration
moderate-severe pain / dyspnea
Protocol
Ondansetron HCl 4 mg 08/04/23 14:49
Ondansetron 4 Mg/2 Ml Vial IV 09/01/23 14:48
Q6HPRN PRN
nausea/vomiting
Patch Removal 0 patch 08/07/23 17:00
Remove Fentanyl Patch *Enter Strength* T+3 REMOVE 08/21/23 16:59
Q72H CAROLYN
Sodium Chloride 0 flush 08/04/23 16:00
Sodium Chloride 0.9% (Flush) Syringe IV 09/01/23 15:59
PER PROTOCOL CAROLYN
Sodium Chloride 0.25 ml 08/04/23 15:25 08/05/23 19:33
Nss (Pf) 10 Ml Vial For Ativan 0.5 Mg Dose IV 09/01/23 15:24 0.25 ml
Q2HPRN PRN Administration
IV LORAZEPAM DILUTION
Sodium Chloride 1 ml 08/04/23 15:25
Nss (Pf) 10 Ml Vial For Ativan 2 Mg Dose IV 09/01/23 15:24
Q1HPRN PRN
IV LORAZEPAM DILUTION
Review of Systems
-
History Source: Patient, Family and Records
All Other Systems: Reviewed and Negative
Constitutional: Reports Weight Loss, No Appetite and Fatigue; Denies Fever
EENT: Reports No Symptoms
Respiratory: Reports No Symptoms
Cardiac: Reports No Symptoms
GI: Reports No Symptoms
Breast: Reports No Symptoms
: Reports No Symptoms
Musculoskeletal: Reports No Symptoms
Skin: Reports No Symptoms
Neuro: Reports Dizzy, Headache and Weakness
Endocrine: Reports No Symptoms
Hematologic/Lymphatic: Reports No Symptoms
Allergy / Immunology: Reports No Symptoms
Psych: Reports Sad and Anxious
Physical Exam
-
General: Well Developed, Well Nourished and Appears Chronically Ill
HEENT: Moist Mucous Membranes; Negative Jaundice
Cardiology: Normal Sinus Rhythm, S1 and S2
Pulmonary: Clear; Negative Wheezes or Rales
GI: Soft and Normal Bowel Sounds
Genito-Urinary: Negative Costovertebral Angle Tenderness
Musculoskeletal: No Clubbing, No Cyanosis and No Edema
Extremities: Pulses Present; Negative Phlebitic Signs
Neurology: Other (confused at times, awake, alert)
Skin: Warm and Dry
Hematologic / Lymphatic: No Lymphadenopathy
Psych: Calm and Confused
Vital Signs
Vital Signs
Temp Pulse Resp BP Pulse Ox
98.2 F 84 16 104/62 97
08/05/23 07:25 08/05/23 07:25 08/05/23 07:25 08/05/23 07:25 08/05/23 12:39
[2023-08-05 23:28] VITALS: BP 112/58
[2023-08-06] MEDS: DECADRON 4 MG IV ×3 (05:55→17:07)
[2023-08-06 07:30] VITALS: BP 116/64
[2023-08-06] MEDS: COLACE 100 MG PO ×2 (08:04→20:24)
[2023-08-06] MEDS: KEPPRA 1000 MG IV ×2 (08:05→20:23)
--- NOTE | 2023-08-06 09:11 | W.PN.HOSP.TC ---
Today's Communication/Plan
-
hospice
Assessment / Plan
Assessment / Plan
pt is a 33 year old male
stage 4 metastatic melanoma--currently on inpt hospice for pain and agitation control--morphine drip ongoing--pt more awake
multiple discussions had with between Dr. Dominguez, Dr. Westbrook and patient's Oncologists at [facility] and [facility], decision made for hospice
code status--DNR
.
Anticipated Discharge: > 48 hours
Subjective/Interval History
-
Date of Service: August 06, 2023
seen with sister at bedside
no active complaints
on morphine gtt
Objective Data
-
Vital Signs:
Vital Signs
Temp Pulse Resp BP Pulse Ox
98.6 F 94 16 116/64 98
08/06/23 07:30 08/06/23 07:30 08/06/23 07:30 08/06/23 07:30 08/06/23 07:30
I&O
08/05/23 08/06/23 08/07/23
06:59 06:59 06:59
Intake Total 730 / 730 1160 / 1160
Output Total 500 / 500 1100 / 1100
Balance 230 / 230 60 / 60
Review of Systems
-
History Source: Patient
All other systems: Reviewed and negative
Physical Exam
-
General: Well Developed, Well Nourished and No Apparent Distress
HEENT: Normocephalic and Atraumatic
Respiratory: Clear to Auscultation; Negative Wheezes or Rhonchi
Cardiac: Regular Rhythm and S1/S2; Negative Murmur
GI: Soft, Nontender, Nondistended and Normal Bowel Sounds
Musculoskeletal: No Clubbing, No Cyanosis and No Edema
Neuro: Awake and Alert
Psych: Calm
Data Reviewed
-
Diagnostic Radiology: Report Reviewed by me
Labs: Labs Reviewed by me
[2023-08-06] MEDS: MIRALAX 17 GRAMS PO (12:18)
--- NOTE | 2023-08-06 15:00 | HOSPNOTE ---
Very long discussion with family. As of right now the patient will continue with inpatient hospice. The family continues to possibly consider home hospice with another agency that does IV pain management. Will continue to follow and see patient
daily. Multiple family dynamics. The patient is on a morphine drip.
[2023-08-06] MEDS: MORPHINE 100 IV (16:04)
[2023-08-06] MEDS: MORPHINE SULFATE 4 MG IV ×2 (16:18→20:22)
[2023-08-06 23:14] VITALS: BP 106/61
[2023-08-07] MEDS: DECADRON 4 MG IV ×5 (00:10→23:54)
[2023-08-07] MEDS: MORPHINE SULFATE 4 MG IV ×4 (06:20→12:17)
[2023-08-07 07:25] VITALS: BP 117/53
[2023-08-07] MEDS: COLACE 100 MG PO ×2 (07:58→20:09)
[2023-08-07] MEDS: KEPPRA 1000 MG IV ×2 (07:58→20:09)
[2023-08-07] MEDS: MIRALAX PO (07:59)
--- NOTE | 2023-08-07 10:41 | CM ---
Patient remains on [facility] hospice at this time. Family requesting fewer visitors at this time. CM will continue to follow for discharge planning needs.
Plan; hospice.
--- NOTE | 2023-08-07 11:24 | W.PN.HOSP.TC ---
Today's Communication/Plan
-
renew drips
hospice
Assessment / Plan
Assessment / Plan
pt is a 33 year old male
stage 4 metastatic melanoma--currently on inpt hospice for pain and agitation control--morphine drip ongoing--pt more awake
multiple discussions had with between Dr. Dominguez, Dr. Westbrook and patient's Oncologists at [place] [facility], decision made for hospice
mutual decision to keep everything the same with IV steroids and IV keppra (and adjust morphine drip for pain) as Vargas more cognizant to them over last 24 hours--so will need family decision by Saturday about how they want to proceed....
code status--DNR
Anticipated Discharge: > 48 hours
Subjective/Interval History
-
Date of Service: August 07, 2023
another family meeting again today
Objective Data
-
Vital Signs:
max temp for 24 hours
08/05/23
23:28
Temp 98.9 F
Vital Signs
Temp Pulse Resp BP Pulse Ox
98.1 F 68 16 117/53 99
08/07/23 07:25 08/07/23 07:25 08/07/23 07:25 08/07/23 07:25 08/07/23 07:25
I&O
08/06/23 08/07/23 08/08/23
06:59 06:59 06:59
Intake Total 1160 / 1160 1967
Output Total 1100 / 1100
Balance 60 / 60 1967
Review of Systems
-
All other systems: Reviewed and negative
Physical Exam
-
General: Well Developed, Well Nourished and No Apparent Distress
HEENT: Normocephalic and Atraumatic
Respiratory: Clear to Auscultation; Negative Wheezes or Rhonchi
Cardiac: Regular Rhythm and S1/S2; Negative Murmur
GI: Soft, Nontender, Nondistended and Normal Bowel Sounds
Musculoskeletal: No Clubbing, No Cyanosis and No Edema
Neuro: Awake
--- NOTE | 2023-08-07 12:15 | HOSPNOTE ---
The patient's family did not wish for me to make my visit today. I will be sending over another nurse tomorrow since there seems to be a personality conflict with me and the 2 sisters. Attending explained different scenarios and if the patient would
be home hospice there needs to be a plan in place so we are able to manage the patient's pain. If the patient does go home DH does not do IV on hospice. I passed along in report that [facility] does IV and made case management aware. The plan for
today is continue with inpatient hospice.
[2023-08-07] MEDS: MORPHINE 100 IV (13:12)
[2023-08-07] MEDS: MORPHINE SULFATE 6 MG IV ×3 (17:01→20:06)
[2023-08-07] MEDS: DURAGESIC 100 MCG/HR PATCH 2 PATCH TRANSDERM (17:36)
[2023-08-07 19:17] VITALS: BP 118/52
[2023-08-08] MEDS: MORPHINE SULFATE 6 MG IV ×5 (05:22→17:27)
[2023-08-08] MEDS: DECADRON 4 MG IV ×3 (05:30→17:12)
[2023-08-08] MEDS: MORPHINE 100 IV ×2 (06:22→22:07)
[2023-08-08] MEDS: KEPPRA 1000 MG IV ×2 (07:54→20:44)
[2023-08-08] MEDS: COLACE 100 MG PO ×2 (07:54→20:44)
[2023-08-08] MEDS: MIRALAX PO (07:59)
[2023-08-08 08:20] VITALS: BP 119/57
[2023-08-08 09:07] VITALS: BP 119/57
--- NOTE | 2023-08-08 11:23 | CM ---
Addendum entered by Rebecca Sánchez 08/08/23 15:57:
Patient outside of [facility] service area, as well as [facility] service area, both hospices did offer some type of pump. [facility] does not offer pump, [facility] Quiroz is checking, [facility] does not offer pain pump. At family request CM
left VM for Ingrid [phone], awaiting call back.
Addendum entered by Rebecca Sánchez 08/08/23 15:20:
[facility] states patient is out of their service area, but are attempting to get an exemption. CM called and spoke with Maren to advocate for patient needs. CM also called to [facility] to determine if they provide option for morphine iv at home.
[facility] is unable to provide IV at home.
Addendum entered by Rebecca Sánchez 08/08/23 12:41:
Information provided to patient family at their request and referral sent to [facility]. CM will continue to follow for discharge planning needs.
Addendum entered by Rebecca Sánchez 08/08/23 12:04:
hospice to review when appropriate.
Original Note:
family expressed interest in [facility], I spoke with Maren Hernandez at [facility] and they are interested in reviewing case. Please call her at [phone]/efax [phone]. CM will review with family and confirm family desire to send referral via all
scripts..
--- NOTE | 2023-08-08 12:19 | W.PN.HOSP.TC ---
Today's Communication/Plan
-
renew morphine drip
d/c planning at family request
Assessment / Plan
Assessment / Plan
pt is a 33 year old male
stage 4 metastatic melanoma--currently on inpt hospice for pain and agitation control--morphine drip ongoing--pt more awake--multiple discussions had with between Dr. Dominguez, Dr. Westbrook and patient's Oncologists at [place] and [facility], decision made
for hospice family asking to speak with CM re: d/c planning for home--no change in IV steroids/keppra--family decision by Saturday about how they want to proceed....
code status--DNR
Anticipated Discharge: > 48 hours
Subjective/Interval History
-
Date of Service: August 08, 2023
pt doing OK--ate today--having BMs
Objective Data
-
Vital Signs:
max temp for 24 hours
08/08/23
08:20
Temp 98.9 F
Vital Signs
Temp Pulse Resp BP Pulse Ox
98.9 F 65 18 119/57 100
08/08/23 08:20 08/08/23 08:20 08/08/23 08:20 08/08/23 08:20 08/08/23 10:55
I&O
08/07/23 08/08/23 08/09/23
06:59 06:59 06:59
Intake Total 1967 1560 / 1560
Output Total 125 / 125
Balance 1967 1435 / 1435
Review of Systems
-
All other systems: Reviewed and negative
Physical Exam
-
General: Well Developed, No Apparent Distress and Appears Chronically Ill
HEENT: Normocephalic and Atraumatic
Respiratory: Clear to Auscultation; Negative Wheezes or Rhonchi
Cardiac: Regular Rhythm and S1/S2; Negative Murmur
GI: Soft, Nontender, Nondistended and Normal Bowel Sounds
Musculoskeletal: No Clubbing, No Cyanosis and No Edema
Neuro: Awake
Psych: Calm
[2023-08-08 19:42] VITALS: BP 125/62
--- NOTE | 2023-08-08 20:21 | HOSPNOTE ---
Patient was alert and sitting up in bed during this visit. He was able to rate his pain and discuss anxiety. He moved freely in bed without grimacing or moaning. He is oriented to place and time. Patients siblings and mother were present for this
visit. Patient is interested in going home with a Hospice agency that will provide IV pain medication.
[2023-08-08] MEDS: NSS (PRESERVATIVE FREE) 0.25 ML IV (21:34)
[2023-08-08] MEDS: ATIVAN 0.5 MG IV (21:35)
[2023-08-09] MEDS: DECADRON 4 MG IV ×4 (00:29→17:24)
[2023-08-09] MEDS: ATIVAN 0.5 MG IV ×3 (05:49→22:11)
[2023-08-09] MEDS: NSS (PRESERVATIVE FREE) 0.25 ML IV ×2 (05:49→13:12)
[2023-08-09 07:30] VITALS: BP 107/63
[2023-08-09] MEDS: COLACE 100 MG PO (07:52)
[2023-08-09] MEDS: KEPPRA 1000 MG IV ×2 (07:52→21:57)
[2023-08-09] MEDS: MORPHINE SULFATE 6 MG IV ×3 (07:52→15:39)
[2023-08-09] MEDS: MIRALAX 17 GRAMS PO (07:54)
--- NOTE | 2023-08-09 11:58 | W.PN.HOSP.TC ---
Today's Communication/Plan
-
working on d/c planning
renew morphine drip
Assessment / Plan
Assessment / Plan
pt is a 33 year old male
stage 4 metastatic melanoma--currently on inpt hospice for pain and agitation control--morphine drip ongoing--pt more awake--multiple discussions had with between Dr. Dominguez, Dr. Westbrook and patient's Oncologists at [place] and [facility], decision made
for hospice family asking to speak with CM re: d/c planning for home--no change in IV steroids/keppra--plan is for home hospice on IV meds, may need to change IV to PO steroids at equivalent dosing....
code status--DNR
Anticipated Discharge: > 48 hours
Subjective/Interval History
-
Date of Service: August 09, 2023
pt doing OK--moving bowels, eating
Objective Data
-
Vital Signs:
max temp for 24 hours
08/08/23
19:42
Temp 99.3 F
Vital Signs
Temp Pulse Resp BP Pulse Ox
97.9 F 92 16 107/63 97
08/09/23 07:30 08/09/23 07:30 08/09/23 07:30 08/09/23 07:30 08/09/23 11:24
I&O
08/08/23 08/09/23 08/10/23
06:59 06:59 06:59
Intake Total 1560 / 1560 900 / 900 72 / 72
Output Total 125 / 125 125 / 125 150 / 150
Balance 1435 / 1435 775 / 775 -78 / -78
Review of Systems
-
All other systems: Reviewed and negative
Physical Exam
-
General: Well Developed, Well Nourished and Appears Chronically Ill
HEENT: Normocephalic and Atraumatic
Respiratory: Clear to Auscultation; Negative Wheezes or Rhonchi
Cardiac: Regular Rhythm and S1/S2; Negative Murmur
GI: Soft, Nontender, Nondistended and Normal Bowel Sounds
Musculoskeletal: No Clubbing, No Cyanosis and No Edema
Neuro: Other (right hemiparesis)
[2023-08-09] MEDS: MORPHINE 100 IV (12:59)
--- NOTE | 2023-08-09 14:38 | HOSPNOTE ---
Spoke to [place]- [facility]. They are willing to accept patient onto their service with the administration of morphine infusion and Decadron iv. I spoke to patients mother and father and provided this information. Patient will need to revoke
from [facility] in order to have a double lumen picc line placed. They will also need to speak to Kenya to coordinate equipment delivery and discharge home and then signing onto [facility]. Patients mother asked that this RN come to the
hospital at 7 pm tonight to explain this to entire family. This RN agreed. Floor RN and Attending updated. Updated [place]- [facility] as well. Will be in touch with them over the weekend as the plan continues to be finalized.
--- NOTE | 2023-08-09 19:28 | HOSPNOTE ---
Family meeting with myself occurred this evening. Answered questions that family and patient had regarding [facility] hospice and patient going home. Reviewed that patient would be switched to Dilaudid- family and patient would like to try this while
he is here in the hospital- Attending made aware. Some family members felt Saturday to go home was too soon while others felt why prolong the inevitable. Patient expressed that this is a lot of information to take in and process. He did like the fact
that [facility] would train his family on how to administer the medications in the home. We also discussed hiring additional caregivers as an extra expense as well. Family asked for the evening to discuss and they will call me tomorrow morning with a
decision. I did let them know that [facility] was the only agency that is willing to accept patient for care at home. Much emotional support provided. While he remains in patient hospice for the management of pain and anxiety IV, hospice will visit
daily. Family also understands that patient would need to revoke from hospice services in order to get PICC line placed before being able to go home on [facility] as well.
[2023-08-09 20:29] VITALS: BP 113/61
[2023-08-09] MEDS: COLACE PO (21:52)
[2023-08-10] MEDS: DECADRON 4 MG IV ×5 (00:49→23:20)
[2023-08-10] MEDS: MORPHINE 100 IV (04:56)
--- NOTE | 2023-08-10 07:58 | CM ---
patient still on [facility] hospice.family wants to transition to home hospice.met with family 08/08 and they are intereested in continuing iv steroids and having a morphine disc jockey.referral sent to [facility] in [place].also spoke with leidy who
could service patient with either a morphine or dilaudid pcp but not able to do iv steroids.kim from [facility] now following
spoke with doctor and family to facilitate transition to home.
spoke with attending this morning and she lucas been in touch with kim from hospice.attending prefers patient dc by late saturday so that she does not have to transfer this patient to another doctor.she may trial patient with iv dilaudid in stead of
morphine..plan:[facility] to follow patient and family for home hospice transition.
--- NOTE | 2023-08-10 10:45 | W.PN.HOSP.TC ---
Today's Communication/Plan
-
change IV morphine drip to IV dilaudid drip
Assessment / Plan
Assessment / Plan
pt is a 33 year old male
stage 4 metastatic melanoma--currently on inpt hospice for pain and agitation control--morphine drip changing to dilaudid drip in effort to get ready for [facility] when d/c (they will only do Dilaudid)--no change in IV steroids/keppra--plan
is for home hospice on IV meds, may need to change IV to PO steroids at equivalent dosing vs keeping IV decadron pending [facility]'s preference
when ready, will need to revoke hospice to put in PICC (family thinking Saturday) with d/c home Saturday
code status--DNR
Anticipated Discharge: > 48 hours
Subjective/Interval History
-
Date of Service: August 10, 2023
pt pain controlled
Objective Data
-
Vital Signs:
max temp for 24 hours
08/08/23
19:42
Temp 99.3 F
Vital Signs
Temp Pulse Resp BP Pulse Ox
98.5 F 80 14 113/61 99
08/09/23 20:29 08/09/23 20:29 08/09/23 20:29 08/09/23 20:29 08/10/23 00:10
I&O
08/09/23 08/10/23 08/11/23
06:59 06:59 06:59
Intake Total 900 / 900 1572 / 1572
Output Total 125 / 125 750 / 750
Balance 775 / 775 822 / 822
Review of Systems
-
All other systems: Reviewed and negative
Physical Exam
-
General: Well Developed, Well Nourished and Appears Chronically Ill
HEENT: Normocephalic and Atraumatic
Respiratory: Clear to Auscultation; Negative Wheezes or Rhonchi
Cardiac: Regular Rhythm and S1/S2; Negative Murmur
GI: Soft, Nontender, Nondistended and Normal Bowel Sounds
Musculoskeletal: No Clubbing, No Cyanosis and No Edema
Skin: Warm
Neuro: Awake
Psych: Calm
[2023-08-10] MEDS: KEPPRA 1000 MG IV ×2 (10:56→19:41)
[2023-08-10] MEDS: COLACE PO (11:01)
[2023-08-10] MEDS: MIRALAX PO (11:01)
[2023-08-10] MEDS: FLUSH (NSS) 2 FLUSH IV ×3 (11:03→17:17)
[2023-08-10 11:16] VITALS: BP 138/70
--- NOTE | 2023-08-10 11:33 | HOSPNOTE ---
Patient remains GIP for pain managment, patient requring IV pain medicine. Patient to be transitioned to a Dilaudid IV GTT today to be discharged to home with hospice. Per patients family PICC to be placed on Saturday and discharge to home on
[facility] hospice Saturday, patient in agreement with the plan.
[2023-08-10] MEDS: DILAUDID 50 IV (11:36)
--- NOTE | 2023-08-10 13:07 | HOSPNOTE ---
Family has made final decision- they wish to take patient home and sign him onto [facility] hospice. I called and spoke to nurse Rosalina at [facility] ([phone]) and she is ordering DME and cad pump/medication for delivery Saturday 08/12 morning. They
requested 12 noon transport to home for Saturday 08/12- CM notified to arrange. [facility] will then meet patient at home. CM can contact Rosalina or Kenya at [facility] at [phone] with any questions or concerns. Patient will revoke from [facility] on 08/11 and will have double lumen picc line placed by IV team on Friday 08/11. Family understands that a new attending will be on Saturday and may not feel comfortable switching patient to comfort measures and continuing dialudid infusion.
They understand attending may only feel comfortable with dilaudid iv push prn. Family will accept that if that is the attendings comfort level. They are also aware that [facility] will not come to the hospital to hook patient to cad pump- this will
occur in the home setting. Teagan (patient sister/poa) is the point of contact- [phone]. Attending and CM updated with plan as well.
[2023-08-10] MEDS: ATIVAN 0.5 MG IV ×2 (13:53→19:40)
[2023-08-10] MEDS: NSS (PRESERVATIVE FREE) 0.25 ML IV ×2 (13:53→19:41)
[2023-08-10] MEDS: DURAGESIC 100 MCG/HR PATCH 2 PATCH TRANSDERM (17:18)
[2023-08-10] MEDS: COLACE 100 MG PO (19:41)
[2023-08-10 19:52] VITALS: BP 118/63
[2023-08-11] MEDS: DECADRON 4 MG IV ×4 (05:55→23:13)
[2023-08-11] MEDS: COLACE PO (07:25)
[2023-08-11] MEDS: MIRALAX PO (07:25)
[2023-08-11] MEDS: KEPPRA 1000 MG IV (07:25)
[2023-08-11] MEDS: DILAUDID 0.25 MG IV ×2 (07:28→08:52)
[2023-08-11] MEDS: FLUSH (NSS) 2 FLUSH IV ×5 (07:29→18:23)
--- NOTE | 2023-08-11 07:52 | CM ---
spoke with attending on 08/09. and kim from [facility]. morphine warehouse team member changed to dilaudid warehouse team member.still on iv steroids.iv steroids may need to be changed to po steroids.plan is for picc placement on saturday and home on saturday with [facility] [phone]..i will give papers to community living coach for 12noon on saturday per family request.
--- NOTE | 2023-08-11 09:12 | PTCARENOTE ---
Dilauidid drip order for end of life care for pt in 2129 was ordered to start on step 3 at 1mg/hr. However, Dilaudid was started at step 1 at 0.3mg/hr. Pt has tolerated that 0.3mg dose throughout the 24 period until this am when he asked for
breakthrough doses to be given for buttocks pain. Doctor this am confirmed her order to start on step 3 which is 1mg/hr. Dilaudid drip order followed per original order and changed over to 1mg /hr. Informed pt of the change. Will cont to
monitor.
--- NOTE | 2023-08-11 10:00 | W.PN.HOSP.TC ---
Today's Communication/Plan
-
cont dilaudid drip today
change to PO keppra
revoke hospice to comfort measures Saturday to place PICC for d/c home Saturday at noon for [facility] hospice at home
Assessment / Plan
Assessment / Plan
pt is a 33 year old male
stage 4 metastatic melanoma--currently on inpt hospice for pain and agitation control--morphine drip changing to dilaudid drip in effort to get ready for [facility] when d/c (they will only do Dilaudid), doing ok on dilaudid--no change in IV
steroids, keppra to PO 08/10--plan is for home hospice on IV meds
when ready, will need to revoke hospice and back to comfort measures to put in PICC on Saturday with d/c home Saturday (12 noon d/c)
code status--DNR
Anticipated Discharge: > 48 hours
Subjective/Interval History
-
Date of Service: August 11, 2023
pt doing OK on the dilaudid drip
Objective Data
-
Vital Signs:
max temp for 24 hours
08/10/23
19:52
Temp 98.5 F
Vital Signs
Temp Pulse Resp BP Pulse Ox
98.5 F 85 18 118/63 99
08/10/23 19:52 08/10/23 19:52 08/10/23 19:52 08/10/23 19:52 08/11/23 02:22
I&O
08/10/23 08/11/23 08/12/23
06:59 06:59 06:59
Intake Total 1572 / 1572 960 / 960
Output Total 750 / 750 1050 / 1050
Balance 822 / 822 -90 / -90
Review of Systems
-
All other systems: Reviewed and negative
Physical Exam
-
General: Well Developed, Well Nourished, No Apparent Distress and Appears Chronically Ill
HEENT: Normocephalic and Atraumatic
Respiratory: Clear to Auscultation; Negative Wheezes or Rhonchi
Cardiac: Regular Rhythm and S1/S2; Negative Murmur
GI: Soft, Nontender, Nondistended and Normal Bowel Sounds
Musculoskeletal: No Clubbing, No Cyanosis and No Edema
Neuro: Awake and Alert
[2023-08-11 11:28] VITALS: BMI 25.8
--- NOTE | 2023-08-11 11:46 | HOSPNOTE ---
Addendum entered by Merry Montiel RN 08/12/23 10:03:
Transport scheduled for Saturday08/13/23, per Chary Patel.
Original Note:
Patient GIP for pain management, patient on step 3 of a Dilaudid IV GTT. Patient has required 2 PRN doses of Dilaudid. Patient will be discharged from [facility] 08/11/23 to have PICC line placed and then discharged to home Saturday08/12/23.
Patient and his father notified by case management that transport is set up for 1200 08/12/23. Reviewed with patient and his family to contact hospice with any questions.
[2023-08-11 12:32] VITALS: BP 120/72
[2023-08-11] MEDS: ATIVAN 0.5 MG IV (18:22)
[2023-08-11] MEDS: NSS (PRESERVATIVE FREE) 0.25 ML IV (18:23)
[2023-08-11 19:31] VITALS: BP 103/60
[2023-08-11] MEDS: COLACE 100 MG PO (20:34)
[2023-08-11] MEDS: KEPPRA 1000 MG PO (20:34)
[2023-08-11] MEDS: DILAUDID 1 MG IV (20:45)
[2023-08-12] MEDS: DILAUDID 1 MG IV (04:02)
[2023-08-12] MEDS: DECADRON 4 MG IV (05:37)
[2023-08-12 07:20] VITALS: BP 108/45
--- NOTE | 2023-08-12 07:36 | W.PN.HOSP.TC ---
Today's Communication/Plan
-
see plan
Assessment / Plan
Assessment / Plan
Gen: NAD, AAOx3, appears chronically ill.
Eyes: EOMI, PERRLA, no scleral icterus.
Neck: supple.
CV: RRR, +S1/S2, no m/r/g.
Resp: CTAB, no rales, wheezes, or rhonchi.
Abd: +BS, soft, NT, ND
Skin: No rashes.
Neuro: CN 2-12 intact, non-focal.
Psych: Normal mood and affect.
Stage 4 metastatic melanoma:
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
-cont inpt hospice care with dilaudid gtt
-cont IV Decadron, PO Keppra
-plan to d/c to [facility] on dilaudid gtt
DNR
Anticipated Discharge: Within 24 hours
Subjective/Interval History
-
Date of Service: August 12, 2023
Reports some L hip and groin pain.
Objective Data
-
Vital Signs:
Vital Signs
Temp Pulse Resp BP Pulse Ox
99.1 F 71 20 103/60 98
08/11/23 19:31 08/11/23 19:31 08/11/23 19:31 08/11/23 19:31 08/12/23 02:39
I&O
08/11/23 08/12/23 08/13/23
06:59 06:59 06:59
Intake Total 960 / 960 60 / 60
Output Total 1050 / 1050 650 / 650
Balance -90 / -90 -590 / -590
[2023-08-12] MEDS: KEPPRA 1000 MG PO (09:57)
[2023-08-12] MEDS: MIRALAX PO (09:57)
[2023-08-12] MEDS: COLACE 100 MG PO (09:57)
--- NOTE | 2023-08-12 10:52 | HOSPNOTE ---
Patient assessed sitting up in the bed, calm and cooperative, reports persistent pain, however appears to be in good spirits and is eating atov. Denies dyspnea, nausea, or other uncomfortable symptoms at this time. Lungs clear to auscultation, heart
rate and rhythm is regular, positive bowel sounds. Discussed the plan for revoking hospice services at this time in order to have a PICC placed, and patient stated he is in agreement. Non-Medicare hospice revocation paperwork signed and uploaded to
[facility]. Awaiting the chart to be flipped and PICC to be placed. No further questions or concerns at this time.
--- NOTE | 2023-08-17 16:55 | W.DCSUMMARY ---
Discharge Summary
Discharge Data
Date of Admission: 08/04/23
Date of Discharge: 08/12/23
-
Pending Results: No
Hospital Course
Primary diagnoses:
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
Secondary diagnoses:
Anemia of chronic disease
Consultants:
None
Imaging:
None
Hospital course: 33-year-old male who was admitted to inpatient hospice for a diagnosis of Stage 4 metastatic melanoma with metastases to the central nervous system. He received IV Dilaudid, Keppra, IV steroids. He was discharged from inpatient
hospice on August 12, 2023 so that he could have a PICC line placed for hospice at home.
Discharge Plan
-
Patient Disposition: Other
Discharge Diagnosis/Procedures: Stage IV metastatic melanoma--patient will be discharged to comfort care and hospice revoked in order to get PICC line placed for discharge home with [facility]
Condition: Good
Diet: As tolerated
Activity: As tolerated
Driving Restrictions: No driving
Bathing Restrictions: None
Referrals:
UNKNOWN,NO INTERVIEW [Family Provider] -
Prescriptions:
Discontinued
levetiracetam [Keppra] 1,000 mg Tablet
1,000 mg PO BID
Braftovi 75 mg Capsule
450 mg PO DAILY
Mektovi 15 mg Tablet
45 mg PO BID
promethazine 25 mg Tablet
25 mg PO Q6H PRN (Reason: nausea)
morphine
1 dose PO PRN PRN (Reason: cancer pain)
Patient Comments:
01/25/2023: Pt states he takes it, but cant find on Dr First or PDMP
hydromorphone [Dilaudid] 4 mg Tablet
4 mg PO Q4H PRN (Reason: cancer pain) Qty: 30 0RF
Patient Comments:
01/25/2023: last filled 01/22/23, 16 tabs for 4 days from [facility]
sennosides [senna] 8.6 mg Tablet
17.2 mg PO HS
polyethylene glycol 3350 17 gram Powder In Packet
17 g PO DAILY
acetaminophen 500 mg Tablet
1,000 mg PO Q8H PRN (Reason: mild pain/fever )
ondansetron 8 mg Tablet,Disintegrating
8 mg PO Q8H PRN (Reason: nausea )
pantoprazole 40 mg Tablet,Delayed Release (Dr/Ec)
40 mg PO DAILY
dexamethasone 4 mg Tablet
4 mg PO DAILY
pyridoxine (vitamin B6) 100 mg Tablet
100 mg PO DAILY
oxycodone 5 mg Tablet
10 mg PO Q4H PRN (Reason: moderate to severe pain)
pregabalin 75 mg Capsule
75 mg PO DAILY
binimetinib 15 mg Tablet
45 mg PO Q12H
Oral Chemo Non-Formulary
450 mg PO DAILY
fentanyl 100 mcg/hr patch 72 hour
2 patch topical Q72H
ferrous sulfate 325 mg (65 mg iron) tablet
325 mg PO DAILY
cefdinir 300 mg capsule
300 mg PO BID
No Action
lorazepam [Ativan] 2 mg/mL Solution
1 mg IV Q2HPRN PRN (Reason: anxiety) Qty: 25 0RF
dexamethasone sodium phosphate 4 mg/mL Solution
4 mg IV Q12H Qty: 30 0RF
hydromorphone (PF) 10 mg/mL Solution
50 mg IV PER PROTOCOL Qty: 50 0RF
levetiracetam 500 mg Tablet
1,000 mg PO BID Qty: 60 0RF
fentanyl 100 mcg/hr Patch 72 Hour
1 patch transdermal Q72H Qty: 3 0RF
fentanyl 100 mcg/hr Patch 72 Hour
1 patch transdermal Q72H Qty: 3 0RF
Discharge Orders:
Discharge Patient (As Directed); Ordered 08/12/23
Ordered By: Jordy Brumfield
Discharge Date and Time
Discharge Date/Time: 08/12/23 11:13
Print Language: VIETNAMESE
== END 2023-08-12 11:13 | disposition hospice, home (50) | DRG 951 ==
LOC: 2 NORTH 14:40
PROVIDERS: ADMITTING PHYSICIAN Internal Medicine; ATTENDING PHYSICIAN Internal Medicine; OTHER PHYSICIAN Internal Medicine Hematology & Oncology
DX: Z51.5 Encounter for palliative care (principal); G93.6 Cerebral edema; C79.31 Secondary malignant neoplasm of brain; C79.51 Secondary malignant neoplasm of bone; G81.91 Hemiplegia, unspecified affecting right dominant side; R53.1 Weakness; D63.8 Anemia in other chronic diseases classified elsewhere; R45.86 Emotional lability; R45.1 Restlessness and agitation; C43.9 Malignant melanoma of skin, unspecified; Z66 Do not resuscitate; Z92.21 Personal history of antineoplastic chemotherapy; Z92.3 Personal history of irradiation; Z79.52 Long term (current) use of systemic steroids

== ENCOUNTER 2023-08-12 11:13 | Inpatient (IN) | payer OTHER, SELFPAY ==
[2023-08-12] MEDS: DILAUDID 1 MG IV ×3 (11:38→17:46)
[2023-08-12] MEDS: DILAUDID 50 IV (13:18)
--- NOTE | 2023-08-12 15:07 | PTCARENOTE ---
pt's chart was flipped today from hospice to comfort measures, PICC line placed to left arm.
[2023-08-12] MEDS: DECADRON 4 MG IV (17:45)
[2023-08-12] MEDS: ATIVAN 1 MG IV (18:46)
[2023-08-12] MEDS: NSS (PRESERVATIVE FREE) 0.5 ML IV (18:46)
[2023-08-12 19:58] VITALS: BP 102/60
[2023-08-12] MEDS: KEPPRA 1000 MG PO (20:54)
[2023-08-13] MEDS: DECADRON 4 MG IV (05:23)
[2023-08-13 07:25] VITALS: BP 99/46
[2023-08-13] MEDS: KEPPRA 1000 MG PO (08:58)
--- NOTE | 2023-08-13 09:26 | W.DS.TRANS ---
DC Summary - [place]
-
Discharge Instructions:
Discharge Diagnosis/Procedures Metastatic melanoma
Diet Regular
Instructions:
Stand-Alone Forms:
Changes to Home Medications: Yes
Discharge Medications:
DC Medications w/original date entered in [facility]
dexamethasone sodium phosphate 4 mg/mL injection solution 4 mg IV Q12H #30 mL 08/13/23
fentanyl 100 mcg/hr transdermal patch 1 patch transdermal Q72H #3 ea 08/13/23
fentanyl 100 mcg/hr transdermal patch 1 patch transdermal Q72H #3 ea 08/13/23
hydromorphone (PF) 10 mg/mL injection solution 50 mg (5 mL) IV PER PROTOCOL #50 mL 08/13/23
levetiracetam 500 mg tablet 1,000 mg (2 x 500 mg) PO BID #60 tabs 08/13/23
lorazepam 2 mg/mL injection solution (Ativan) 1 mg (0.5 mL) IV Q2HPRN PRN anxiety #25 mL 08/13/23
Home Medication Changes
As above with hospice discharge.
Pending Results: No
--- NOTE | 2023-08-13 10:20 | PTCARENOTE ---
pt is aaox3 for this nurse this AM. pt is on a step 3 dilaudid gtt going through is R PICC. pt to be d/c home with hospice this afternoon. pt fentanyl patches replaced. each dose is 100mcg. see worklist for proper documentation.
[2023-08-13] MEDS: DURAGESIC 100 MCG/HR PATCH 2 PATCH TRANSDERM (10:30)
[2023-08-13 12:05] VITALS: BP 97/44
--- NOTE | 2023-08-13 16:39 | CM ---
Addendum entered by Jarad Mahoney 08/13/23 16:42:
[facility] phone # [phone]
Hospice Nurse ([place]) # [phone]

Original Note:
Patient on comfort care. Has been discharged to home with intent on initiating in-home hospice services with [facility]. Transport was scheduled for 12:00 N.
== END 2023-08-13 12:38 | disposition hospice, home (50) | DRG 948 ==
LOC: 2 NORTH 11:13
PROVIDERS: Internal Medicine; ADMITTING PHYSICIAN Internal Medicine; ATTENDING PHYSICIAN Internal Medicine
PROC: 02HV33Z Insertion of Infusion Device into Superior Vena Cava, Percutaneous Approach (ICD-10-PCS; 2023-08-12)
DX: G89.3 Neoplasm related pain (acute) (chronic) (principal); C79.40 Secondary malignant neoplasm of unspecified part of nervous system; C43.9 Malignant melanoma of skin, unspecified; Z79.52 Long term (current) use of systemic steroids
CPT/HCPCS: 71045